=== PATIENT | male | born 1970 | race Caucasian/White ===

== ENCOUNTER 2016-12-16 00:26 | Inpatient (IN) | payer OTHER, MEDICARE ==
[~2016-12-16] VITALS: Ht 185.4 cm; Wt 105.6 kg
[2016-12-16 02:10] VITALS: BP 146/98; PULSE 89; RESP 16; TEMP 97.5; O2SAT 97
[2016-12-16] MEDS ORDERED: diphenhydrAMINE HCL 50 MG CAP - HS PRN PO (02:30)
[2016-12-16] MEDS ORDERED: BENZTROPINE MESYLATE 1 MG TAB PO PRN (02:30)
[2016-12-16] MEDS ORDERED: BENZTROPINE MESYLATE 2 MG/2 ML VIAL IM PRN (02:30)
[2016-12-16] MEDS ORDERED: MAGNESIUM HYDROXIDE SUSP 30 ML CUP PO PRN (02:30)
[2016-12-16] MEDS ORDERED: ALUMINUM/MAGNESIUM/SIMETH 30 ML CUP PO PRN (02:30)
[2016-12-16] MEDS ORDERED: diphenhydrAMINE HCL 50 MG/ML VIAL - HS PRN IM (02:30)
[2016-12-16] MEDS ORDERED: ACETAMINOPHEN 325 MG TAB PO PRN (02:30)
[2016-12-16] MEDS ORDERED: FLUMAZENIL 0.5 MG/5 ML VIAL IV PUSH PRN (03:00)
[2016-12-16] MEDS ORDERED: LORazepam 2 MG/ML VIAL IV PUSH PRN ×4 (03:00)
[2016-12-16] MEDS ORDERED: LORazepam 2 MG TAB PO PRN (03:00)
[2016-12-16] MEDS ORDERED: LORazepam 1 MG TAB PO PRN (03:00)
[2016-12-16] MEDS: hydrOXYzine HCL 50 MG TAB PO PRN ×2 (03:23→09:03)
[2016-12-16 06:37] VITALS: BP 103/69; PULSE 73; RESP 18; TEMP 98.2; O2SAT 97
[2016-12-16] MEDS: NICOTINE 21 MG/24 HR PATCH T-DERMAL SCH (08:41)
--- NOTE | 2016-12-16 13:50 | HHI.HP ---
Provisional Diagnosis Admission Date December 16, 2016 at 02:00 Donald I. Adjustment disorder with mixed disturbance of emotions and conduct. Certification of Person's Competence To Provide Express and Informed Consent I have personally examined Ron Adrian , a person being served at [facility] on, December 16, 2016 13:39. Express and informed consent means consent voluntarily given in writing, by a competent person, after sufficient explanation and disclosure of the subject matter involved to enable the person to make a knowing and willful decision without any element of force, fraud, deceit, duress, or other form of constraint or coercion. This person is 18 years of age or older, is not now known to be incompetent to consent to treatment with a guardian advocate, and does not have a health care surrogate or proxy currently making medical treatment decisions. I have found this person to be one of the following: [X] Competent to provide express and informed consent, as defined above, for voluntary admission to this facility and is competent to provide express and informed consent for treatment. He/she has the consistent capacity to make well reasoned, willful, and knowing decisions concerning his or her medical or mental health treatment. The person fully and consistently understands the purpose of the admission for examination/placement and is fully capable of personally exercising all rights [place] Incompetent to provide express and informed consent to voluntary admission, and this is incompetent to provide express and informed consent to treatment. The person must be transferred to involuntary status and a petition for a guardian advocate filed with the Circuit Court. [] Refusing to provide express and informed consent to voluntary admission but is competent to provide express and informed consent for treatment. The person must be discharged or transferred to involuntary status. Form shall be completed within 24 hours of a person's arrival at the receiving facility and filed in the clinical record of each person: 1. Admitted on a voluntary basis 2. Permitted to provide express and informed consent to his/her own treatment 3. Allowed to transfer from involuntary to voluntary status 4. Prior to permitting a person to consent to his or her own treatment after having been previously found incompetent to consent to treatment. History of Present Illness Capacity: Has Capacity HPI Patient drank rum and blueberry juice yesterday. States he had 2 drinks and became intoxicated, depressed and suicidal. Currently he denies any suicidal ideation. He does take psychotropic medications including Haldol, Risperdal and Depakote. He also takes BuSpar for anxiety. He believes he takes these medicines to treat his depression, which sometimes occurs with hallucinations. No psychosis at the present time. Patient willing to contract for safety. Review of Systems Except as stated in HPI: all other systems reviewed are Neg Past Psych History Psychological trauma history Treated on an outpatient basis in a different city. Violence risk - others (6 mos) Minimal Violence risk - self (6 mos) Minimal Substance Abuse History Drugs/Alcohol past 12 months Told by this physician to discontinue use of alcohol. States he drinks several times per week. Past Family Social History Coded Allergies: Codeine (Verified Allergy, Severe, Anaphylaxis, 12/16/16) Hydrocodone (Verified Allergy, Severe, Anaphylaxis, 12/16/16) Current Medications Medications (Trade) Dose Ordered Sig/Ap Route Start Time Stop Time Status Last Admin (Atarax) 50 mg Q6H PRN PO 12/16/16 02:30 12/16/16 09:03 (Cogentin) 1 mg Q12H PRN PO 12/16/16 02:30 (Cogentin Inj) 1 mg Q12H PRN IM 12/16/16 02:30 (Benadryl) 50 mg HS PRN PO 12/16/16 02:30 (Benadryl Inj) 50 mg HS PRN IM 12/16/16 02:30 (Tylenol) 650 mg Q4H PRN PO 12/16/16 02:30 (Milk Of Magnesia Liq) 30 ml DAILY PRN PO 12/16/16 02:30 (Mag-Al Plus Susp Liq) 30 ml Q6H PRN PO 12/16/16 02:30 (Habitrol 21 Mg Patch.24 Hr) 1 patch DAILY T-DERMAL 12/16/16 09:00 12/16/16 08:41 Miscellaneous Information 1 HS T-DERMAL 12/16/16 21:00 (Ativan) 1 mg Q4H PRN PO 12/16/16 03:00 (Ativan Inj) 1 mg Q4H PRN IV PUSH 12/16/16 03:00 (Ativan) 2 mg Q2H PRN PO 12/16/16 03:00 (Ativan Inj) 2 mg Q2H PRN IV PUSH 12/16/16 03:00 (Ativan Inj) 2 mg Q1H PRN IV PUSH 12/16/16 03:00 (Ativan Inj) 2 mg Q15M PRN IV PUSH 12/16/16 03:00 (Romazicon Inj) 0.2 mg Q1M PRN IV PUSH 12/16/16 03:00 Family History Positive for mental illness in the form of mood disorder, anxiety disorder and possible psychotic disorders. Social History Retired. Works part-time at [employer]. Patient's Strengths (min. 2) Verbal and has access to healthcare. Physical Exam GENERAL: SKIN: Warm and dry. HEAD: Normocephalic. EYES: No scleral icterus. No injection or drainage. NECK: Supple, trachea midline. No JVD or lymphadenopathy. CARDIOVASCULAR: Regular rate and rhythm without murmurs, gallops, or rubs. RESPIRATORY: Breath sounds equal bilaterally. No accessory muscle use. GASTROINTESTINAL: Abdomen soft, non-tender, nondistended. MUSCULOSKELETAL: No cyanosis, or edema. BACK: Nontender without obvious deformity. No CVA tenderness. Vital Signs Vital Signs Date Time Temp Pulse Resp B/P Pulse Ox O2 Delivery O2 Flow Rate FiO2 12/16/16 06:37 98.2 73 18 103/69 97 Mental Status Examination Speech: Unremarkable Orientation: x3 Memory: Unremarkable Thought Process: Organized, Goal Directed Thought Content: Unremarkable Hallucination Type: None Attention and Concentration: Good Suicidal Ideation: No Previous Suicide Attempts: No Homicidal Ideation: No Previous Homicide Attempts: No Insight: Fair Judgment: WNL Affect: Good Mood: Appropriate Motor Activity: Normal gait Assessment & Plan Problem List: (1) Adjustment disorder with mixed disturbance of emotions and conduct ICD Code: F43.25 Assessment & Plan Estimated LOS: 1-2 days patient to be evaluated for his depressed mood and threats of suicide. Will be hopefully discharge tomorrow. Will be maintained on his current medicines. Sukumar Van MD December 16, 2016 13:50
[2016-12-16] MEDS: busPIRone HCL 10 MG TAB PO SCH (17:20)
[2016-12-16 20:01] VITALS: BP 109/75; PULSE 70; RESP 17; TEMP 98; O2SAT 94
[2016-12-16] MEDS ORDERED: DIVALPROEX SODIUM E.R. 500 MG TAB PO SCH (21:00)
[2016-12-16] MEDS ORDERED: risperiDONE 1 MG TAB PO SCH (21:00)
[2016-12-16] MEDS ORDERED: REMOVE OLD NICOTINE PATCH T-DERMAL SCH (21:00)
[2016-12-17 05:25] VITALS: BP 112/73; PULSE 62; RESP 18; TEMP 97.1; O2SAT 93
[2016-12-17] MEDS: busPIRone HCL 10 MG TAB PO SCH ×2 (08:13→12:03)
[2016-12-17] MEDS: NICOTINE 21 MG/24 HR PATCH T-DERMAL SCH (08:13)
[2016-12-17] MEDS ORDERED: DIVALPROEX SODIUM E.R. 250 MG TAB PO SCH (09:00)
[2016-12-17 10:57] LABS: ANION GAP 8 MEQ/L (5-15); BICARBONATE 26.7 MEQ/L (21.0-32.0); BLOOD UREA NITROGEN 17 MG/DL (7-18); CHLORIDE 106 MEQ/L (98-107); GLOMERULAR FILTRATION RATE 70 ML/MIN (>89); SODIUM (NA) 141 MEQ/L (136-145)
[2016-12-17 11:00] LABS: HDL CHOLESTEROL 43.3 MG/DL (40.0-60.0); LDL CHOLESTEROL 113 MG/DL (0-99)
[2016-12-17 13:10] LABS: HEMOGLOBIN A1b 1.4 %; HEMOGLOBIN Ao 86.9 %; HEMOGLOBIN P3 3.5 %
--- NOTE | 2016-12-17 14:24 | HHI.DS ---
Psychiatry Discharge Summary Inpatient Psychiatric care?: Yes Advance Directive: Yes Mental Health AdvanceDirective: Yes (pt declined) Name and Number: pt declined Health Care Proxy: Yes (pt declined) Name and Phone Number: pt declined Admission Admission Date December 16, 2016 at 02:00 Admission Diagnosis: (1) Adjustment disorder with mixed disturbance of emotions and conduct ICD Code: F43.25 Brief History Patient drank rum and blueberry juice yesterday. States he had 2 drinks and became intoxicated, depressed and suicidal. Currently he denies any suicidal ideation. He does take psychotropic medications including Haldol, Risperdal and Depakote. He also takes BuSpar for anxiety. He believes he takes these medicines to treat his depression, which sometimes occurs with hallucinations. No psychosis at the present time. Patient willing to contract for safety. Tobacco Use In Past 30 Days: Smokeless Tobacco Alcohol Use: 2-3 Times Per Week Hospital Course Patient seen today with RN a counselor amy, patient alert oriented calm and cooperative stating he did drink this alcohol combination give intoxicated made suicidal statement. He denies any suicidality homicidality voices or visions. Does acknowledge occasional alcohol use a few times per week. Though he denies detox rehabilitation [employer] legal issue related to alcohol. Denies other drug use. States she does have a history of bipolar disorder. He has a psychiatrist in the community is on medication for that. He has been compliant with his medication. He denies suicidality homicidality voices or visions. He has been compliant with the program and no behavioral issues. At this time patient does not meet criteria for further inpatient psychiatric hospitalization. Patient to be discharged today to himself, no Rx by me, may continue his own schedule medications at home, and follow-up with his private psychiatrist, also would make referral to AA Results Blood Pressure 112 / 73 Vital Signs Date Time Temp Pulse Resp B/P Pulse Ox O2 Delivery O2 Flow Rate FiO2 12/17/16 05:25 97.1 62 18 112/73 93 Laboratory Tests Test 12/17/16 09:46 Estimat Glomerular Filtration 70 ML/MIN (>89) Rate Triglycerides Level 221 MG/DL (42-150) LDL Cholesterol 113 MG/DL (0-99) Laboratory Results Test 12/17/16 09:46 Hemoglobin A1c 4.8 % (4.3-6.0) Triglycerides Level 221 MG/DL (42-150) Cholesterol Level 200 MG/DL (120-200) LDL Cholesterol 113 MG/DL (0-99) HDL Cholesterol 43.3 MG/DL (40.0-60.0) Summary of Procedures None done Pending results at discharge: No Medications # of Antipsychotic meds at D/C: 0 Approp Antipsych med options 1 - Minimum of three failed multiple trials of monotherapy. 2 - Documented plan to taper to monotherapy due to previous use of multiple meds OR cross-taper in progress at D/C. 3 - Documentation of augmentation of Clozapine. 4 - Justification other than those listed in allowable values 1-3, document here : Discharge Discharge Date: December 17, 2016 Discharge Diagnosis: (1) Adjustment disorder with mixed disturbance of emotions and conduct Diagnosis: Principal ICD Code: F43.25 (2) History of depressed bipolar disorder Diagnosis: Secondary ICD Code: F31.70 (3) Alcohol abuse Diagnosis: Secondary ICD Code: F10.10 Mental Status Exam at Disch Alert oriented white male calm cooperative, normal active, mood is euthymic with good range intensity of his affect, speech rate and rhythm within normal limits no formal thought disorders, no auditory or visual hallucinations, no delusions, insight and judgment fair, cognition grossly intact Pt Condition on Discharge: Stable Discharge Disposition: Discharge Home Discharge Instructions Diet Instructions: As Tolerated, No Restrictions Activities you can perform: Regular-No Restrictions Scheduled Appointment: Dr Abrams/ [facility] Appointment Date: December 30, 2016 Appointment Time: 9:00am Discharge Time > 30 minutes Discharge/Advance Care Plan Health Problems: (1) Adjustment disorder with mixed disturbance of emotions and conduct Goals to promote your health * To prevent worsening of your condition and complications * To maintain your health at the optimal level Directions to meet your goals Take your medications as prescribed Follow your dietary instruction Follow activity as directed Keep your appointments as scheduled Take your immunizations and boosters as scheduled If your symptoms worsen call your PCP, if no PCP go to Urgent Care Center or Emergency Room For 28/02 questions related to your inpatient stay or results of tests pending at discharge, please contact Dr. Benjamin Daugherty at Smoking is Dangerous to Your Health. Avoid second hand smoking Benjamin Daugherty MD December 17, 2016 14:24
== END 2016-12-17 15:00 | disposition home or self-care (01) | DRG 882 ==
LOC: H260 02:00
PROVIDERS: ADMIT Psychiatry & Neurology Psychiatry; ATTEND Psychiatry & Neurology Psychiatry
DX: F43.25 Adjustment disorder with mixed disturbance of emotions and conduct (principal); F31.9 Bipolar disorder, unspecified; F41.9 Anxiety disorder, unspecified; F17.290 Nicotine dependence, other tobacco product, uncomplicated; F10.10 Alcohol abuse, uncomplicated
CPT/HCPCS: 80048; 80061; 83036